=== PATIENT | female | born 1955 | race Caucasian/White ===

== ENCOUNTER → 2016-05-10 | Outpatient (CLI) | payer BC ==
[~2016-05-10] MED LIST: ATOR-14 PO; CALC-51; CLX20 PO; FERR-24 PO; LEVO125T7 PO; MORP-157 PO; OMEG10007 PO; OXYC7.5T78 PO; SUPER B COMPLEX PO
[2016-05-10 12:52] LABS: HEMATOCRIT 38.1 % (37-47); LYMPH % 33.6 %; MEAN CELL VOLUME 90.3 fL (80-100); MEAN CORPUSCULAR HEMOGLOBIN 29.4 pg (25-34); MEAN CORPUSCULAR HGB CONC 32.5 g/dl (32-36); MEAN PLATELET VOLUME 11.1 fL (7.4-10.4); MONO % 7.6 %; NEUT % 55.5 %; PLATELET COUNT 272 K/uL (130-400); RED BLOOD COUNT 4.22 M/uL (4.2-5.4); WHITE BLOOD COUNT 4.47 K/uL (4.8-10.8)
[2016-05-10 12:53] LABS: BASO % 0.4 %; BASO ABS # 0.02 K/uL (0-0.2); COMPLETE YES; EOS % 2.9 %
[2016-05-10 12:58] LABS: ALT/SGPT 31 U/L (12-78); AST/SGOT 19 U/L (15-37); BLOOD UREA NITROGEN 16 mg/dl (7-18); BUN/CREATININE RATIO 19.8 (10-20); CALCIUM 8.6 mg/dl (8.5-10.1); CARBON DIOXIDE 26 mmol/L (21-32); CHLORIDE 107 mmol/L (98-107); CREATININE 0.81 mg/dl (0.60-1.20); GLUCOSE 82 mg/dl (70-99); POTASSIUM 4.2 mmol/L (3.5-5.1); SODIUM 141 mmol/L (136-145)
[2016-05-10 13:09] LABS: ALKALINE PHOSPHATASE 89 U/L (45-117); CHOLESTEROL 150 mg/dl (0-200); CHOLESTEROL/HDL RATIO 2.2; FERRITIN 6.3 ng/ml (8.0-388.0); HDL CHOLESTEROL 69 mg/dl; LDL CHOLESTEROL CALCULATED 70 mg/dl; TRIGLYCERIDES 55 mg/dl (0-150); VERY LOW DENSITY LIPOPROT CALC 11 mg/dl
== END | disposition home or self-care (01) ==
LOC: C.LABBFT 07:53
PROVIDERS: ATTEND Nurse Practitioner
DX: E78.00 Pure hypercholesterolemia, unspecified (principal); D64.9 Anemia, unspecified; E03.9 Hypothyroidism, unspecified

== ENCOUNTER → 2016-10-31 | Outpatient (CLI) | payer OTHER ==
[2016-10-31 12:11] LABS: HEMATOCRIT 41.1 % (37-47); MEAN CELL VOLUME 92.8 fL (80-100); MEAN CORPUSCULAR HEMOGLOBIN 29.3 pg (25-34); MEAN CORPUSCULAR HGB CONC 31.6 g/dl (32-36); MEAN PLATELET VOLUME 10.5 fL (7.4-10.4); PLATELET COUNT 275 K/uL (130-400); RED BLOOD COUNT 4.43 M/uL (4.2-5.4); WHITE BLOOD COUNT 4.87 K/uL (4.8-10.8)
[2016-10-31 12:39] LABS: ALT/SGPT 26 U/L (12-78); AST/SGOT 20 U/L (15-37); BLOOD UREA NITROGEN 14 mg/dl (7-18); BUN/CREATININE RATIO 15.5 (10-20); CALCIUM 9.1 mg/dl (8.5-10.1); CARBON DIOXIDE 28 mmol/L (21-32); CHLORIDE 106 mmol/L (98-107); CHOLESTEROL 178 mg/dl (0-200); CREATININE 0.87 mg/dl (0.60-1.20); GLUCOSE 87 mg/dl (70-99); POTASSIUM 4.4 mmol/L (3.5-5.1); SODIUM 139 mmol/L (136-145); TRIGLYCERIDES 58 mg/dl (0-150); VERY LOW DENSITY LIPOPROT CALC 12 mg/dl
[2016-10-31 12:44] LABS: ALB/GLOB RATIO 1.1 (0.9-2); ALKALINE PHOSPHATASE 80 U/L (45-117); CHOLESTEROL/HDL RATIO 2.3; HDL CHOLESTEROL 77 mg/dl; LDL CHOLESTEROL CALCULATED 89 mg/dl
== END | disposition home or self-care (01) ==
LOC: C.LABBFT 08:19
PROVIDERS: ATTEND Nurse Practitioner
DX: E78.00 Pure hypercholesterolemia, unspecified (principal); D64.9 Anemia, unspecified

== ENCOUNTER → 2017-05-10 | Outpatient (CLI) | payer OTHER ==
[2017-05-10 12:53] LABS: ALBUMIN 3.7 gm/dl (3.4-5.0); ALT/SGPT 34 U/L (12-78); AST/SGOT 22 U/L (15-37); BLOOD UREA NITROGEN 13 mg/dl (7-18); CALCIUM 9.3 mg/dl (8.5-10.1); CARBON DIOXIDE 29 mmol/L (21-32); GLUCOSE 84 mg/dl (70-99); POTASSIUM 4.4 mmol/L (3.5-5.1); SODIUM 138 mmol/L (136-145)
[2017-05-10 13:04] LABS: ALKALINE PHOSPHATASE 81 U/L (45-117); CHOLESTEROL 177 mg/dl (0-200); LDL CHOLESTEROL CALCULATED 89 mg/dl; TOTAL PROTEIN 7.6 gm/dl (6.4-8.2)
== END | disposition home or self-care (01) ==
LOC: C.LABBFT 08:19
PROVIDERS: ATTEND Nurse Practitioner
DX: E78.00 Pure hypercholesterolemia, unspecified (principal); D64.9 Anemia, unspecified; E03.9 Hypothyroidism, unspecified

== ENCOUNTER → 2017-06-09 | Outpatient (CLI) | payer OTHER | END | disposition home or self-care (01) | LOC: C.LABPVFM 09:25 | PROVIDERS: ATTEND Nurse Practitioner | DX: E03.9 Hypothyroidism, unspecified (principal) ==

== ENCOUNTER → 2017-11-02 | Outpatient (CLI) | payer OTHER ==
[2017-11-02 16:37] LABS: BLOOD UREA NITROGEN 15 mg/dl (7-18); CALCIUM 8.6 mg/dl (8.5-10.1); CARBON DIOXIDE 25 mmol/L (21-32); CREATININE 0.87 mg/dl (0.60-1.20); GLUCOSE 77 mg/dl (70-99); POTASSIUM 4.1 mmol/L (3.5-5.1); SODIUM 134 mmol/L (136-145)
== END | disposition home or self-care (01) ==
LOC: C.LAB1850 15:12
PROVIDERS: ATTEND Nurse Practitioner
DX: E03.9 Hypothyroidism, unspecified (principal); E78.00 Pure hypercholesterolemia, unspecified

== ENCOUNTER 2023-03-07 05:29 | Observation (INO) ==
--- NOTE | 2023-02-09 09:57 | PAT Medication Instructions ---
Medication Instructions Date of Service February 09, 2023 Home Medications Medication Instructions Recorded diclofenac sodium 1 % topical gel 2 gm topical QID #100 grams 10/09/19 levothyroxine 175 mcg tablet 175 mcg PO QAM #90 tabs 05/18/22 atorvastatin 10 mg tablet 10 mg PO HS #90 tabs 07/15/22 citalopram 40 mg tablet 40 mg PO QAM #90 tabs 07/15/22 bupropion HCl 100 mg tablet,12 hr 100 mg PO QAM #90 ea 09/01/22 sustained-release omeprazole 40 mg capsule,delayed 40 mg PO QAM #90 caps 09/01/22 release alendronate 70 mg tablet 70 mg PO .COMPLEX #12 tabs 11/09/22 valsartan 80 mg tablet 80 mg PO QAM #90 tabs 01/20/23 cholecalciferol (vitamin D3) 50 mcg (2,000 unit) tablet 2,000 unit PO QAM cyanocobalamin (vitamin B-12) 1,000 mcg tablet 1,000 mcg PO HS omega-3 fatty acids 1,000 mg capsule (Fish Oil Concentrate) 1,000 mg PO QAM calcium citrate 500 mg PO BID ferrous sulfate 325 mg (65 mg iron) tablet 325 mg PO 3XWK diclofenac sodium 1 % topical gel 2 gm topical QID levothyroxine 175 mcg tablet 175 mcg PO QAM atorvastatin 10 mg tablet 10 mg PO HS citalopram 40 mg tablet 40 mg PO QAM bupropion HCl 100 mg tablet,12 hr sustained-release 100 mg PO QAM omeprazole 40 mg capsule,delayed release 40 mg PO QAM alendronate 70 mg tablet 70 mg PO .COMPLEX valsartan 80 mg tablet 80 mg PO QAM STOP taking 2 weeks before surgery (or as soon as possible if surgery is within 2 weeks) omega-3 fatty acids 1,000 mg capsule (Fish Oil Concentrate) 1,000 mg PO QAM STOP taking 24 hours before surgery diclofenac sodium 1 % topical gel 2 gm topical QID DO NOT take the morning of surgery cholecalciferol (vitamin D3) 50 mcg (2,000 unit) tablet 2,000 unit PO QAM calcium citrate 500 mg PO BID ferrous sulfate 325 mg (65 mg iron) tablet 325 mg PO 3XWK alendronate 70 mg tablet 70 mg PO .COMPLEX valsartan 80 mg tablet 80 mg PO QAM Take morning of surgery With a small sip of water, OTHERWISE NOTHING TO EAT OR DRINK AFTER MIDNIGHT: levothyroxine 175 mcg tablet 175 mcg PO QAM citalopram 40 mg tablet 40 mg PO QAM bupropion HCl 100 mg tablet,12 hr sustained-release 100 mg PO QAM omeprazole 40 mg capsule,delayed release 40 mg PO QAM Take evening before surgery cyanocobalamin (vitamin B-12) 1,000 mcg tablet 1,000 mcg PO HS calcium citrate 500 mg PO BID atorvastatin 10 mg tablet 10 mg PO HS Other Notes If you have any questions please call us at [phone] or [phone] or [phone] or [phone]
--- NOTE | 2023-02-15 13:13 | Anesthesiology Consultation ---
Date of Service February 15, 2023 Assessment & Plan (1) Encounter for pre-operative examination: Plan - PCP pre-operative evaluation 02/07/23 [place]: "...no history of cardiac disease and limited risk factors. Patient is medically stable to proceed with surgery. She will have preop clearance on 02/15/23. Final clearance after review of preop testing..." - Outpatient joint assessment: Patient is currently scheduled for inpatient pathway. If re-evaluated and patient/surgeon requests outpatient pathway, patient is acceptable candidate for outpatient joint program from anesthesia standpoint pending surgeon's office assessment of pt motivation/support/complet ion of same day joint program preop requirements. Chart Review Chart Review: Acceptable Risk for Surgery and Patient seen in Pre Admission Testing Teaching & Discussion Pre-Anesthesia Teaching/Discussion Notes: Instructed NPO after midnight before surgery, except medications with 15 cc of water. Medication instructions provided according to the PAT guidelines. History Surgery Operation Date: 03/07/23 07:00 Proposed Procedures p Left Total Knee Arthroplasty - Homer Cochran MD Height/Weight Height: 5 ft 4 in Weight: 103.5 kg Allergies Allergy/AdvReac Type Severity Reaction Status Date / Time No Known Allergies Allergy Verified 02/08/23 08:30 Medications Home Medications Medication Instructions Recorded Confirmed Last Taken cholecalciferol (vitamin D3) 50 2,000 unit PO QAM 11/29/18 02/08/23 04/13/21 mcg (2,000 unit) tablet cyanocobalamin (vitamin B-12) 1,000 mcg PO HS 11/29/18 02/08/23 04/13/21 1,000 mcg tablet omega-3 fatty acids 1,000 mg 1,000 mg PO QAM 11/29/18 02/08/23 04/13/21 capsule (Fish Oil Concentrate) calcium citrate 500 mg PO BID 01/16/19 02/08/23 04/13/21 ferrous sulfate 325 mg (65 mg 325 mg PO 3XWK 01/16/19 02/08/23 04/12/21 iron) tablet diclofenac sodium 1 % topical gel 2 gm topical QID #100 grams 10/09/19 02/08/23 Unknown levothyroxine 175 mcg tablet 175 mcg PO QAM #90 tabs 05/18/22 02/08/23 Unknown atorvastatin 10 mg tablet 10 mg PO HS #90 tabs 07/15/22 02/08/23 Unknown citalopram 40 mg tablet 40 mg PO QAM #90 tabs 07/15/22 02/08/23 Unknown bupropion HCl 100 mg tablet,12 hr 100 mg PO QAM #90 ea 09/01/22 02/08/23 Unknown sustained-release omeprazole 40 mg capsule,delayed 40 mg PO QAM #90 caps 09/01/22 02/08/23 Unknown release alendronate 70 mg tablet 70 mg PO .COMPLEX #12 tabs 11/09/22 02/08/23 Unknown valsartan 80 mg tablet 80 mg PO QAM #90 tabs 01/20/23 02/08/23 Unknown Past Medical History Medical History (Updated 02/15/23 @ 13:19 by Bina Faust PA-C) Anemia, mild Prediabetes no meds Osteoporosis Overactive bladder GERD (gastroesophageal reflux disease) controlled, stable per pt Anxiety and depression Pulmonary nodule Left [place] 04/2019 CT cervical spine Hypothyroidism History of Graves' disease History of radioactive iodine thyroid ablation Hyperlipidemia Hypertension controlled, stable per pt Lichen sclerosus Patient denies h/o stroke, seizures, heart attack, heart failure, blood clots/DVTs or blood transfusions. Exercise / Class Metabolic Activity II 4-5 Yardwork/Stairs/Walk up hill (denies chest discomfort or shortness of breath with 1 FOS, notes only has SOB if increased pain with knee-denies change or worsening) Past Family History Family History Father Coronary heart disease Heart disease Mother Diabetes Coronary heart disease Brother Family history of diabetes mellitus Other No family history of adverse response to anesthesia Denies family history of Ovarian cancer Prostate cancer Breast cancer Colorectal cancer Past Surgical History Surgical History History of hysterectomy History of open reduction and internal fixation (ORIF) procedure right wrist---hardware in place Status post debridement of bone spur right foot History of carpal tunnel surgery of right wrist History of total right knee replacement (TKR) History of [place]-en-Y gastric bypass 2004 History of tooth extraction History of wisdom tooth extraction H/O tubal ligation S/P panniculectomy H/O colonoscopy S/P appendectomy Past Anesthesia History No Hx of Anesthesia Complications and No Family Hx of Anesthesia Complications History of PONV History of PONV (denies needing scop patch) and Hx of Motion Sickness Social History Smoking Status: Former smoker Do You Dip or Chew Tobacco: No Smoking End Date: quit 1993 Hx Alcohol Use: Yes Alcohol type: wine and hard liquor alcohol intake frequency: a few times a month Hx Substance Use: No substance use type: does not use Review of Systems Patient denies chest pain, shortness of breath, dyspnea on exertion, snoring, witnessed apneas, fever, chills, cough, wheezing, or palpitations. Physical Exam Vital Signs Vitals BP 125/77 P 68 TEMP 97.7 SP02 97% on RA RESP 18 Physical Patient resting comfortably in chair in no acute distress, alert and oriented, responding appropriately throughout visit Full cervical extension range of motion without pain TMD 3.5 finger breadths Mallampati Score 2 Dentition: bridge front upper and several caps/crowns, denies chipped or loose teeth, or implants Lungs: normal respiratory effort. Good air movement, clear throughout to auscultation, no adventitious breath sounds Cardiac: regular rate and rhythm, no murmurs noted Carotid arteries: negative bruit bilat Lab Results Anesthesia Preop Results Results Anesthesia Widget: WBC 5.08 K/ul (4.8-10.8) 02/15/23 Hgb 12.2 g/dl (12.0-16.0) 02/15/23 Hct 37.0 % (37.0-47.0) 02/15/23 Plt 265 K/uL (130-400) 02/15/23 Na 134 mmol/L (136-145) L 02/15/23 K 4.9 mmol/L (3.5-5.1) 02/15/23 Cl 102 mmol/L (98-107) 02/15/23 CO2 26 mmol/L (21-32) 02/15/23 BUN 14 mg/dl (6-23) 02/15/23 Creat 0.78 mg/dl (0.6-1.2) 02/15/23 Glucose Level 91 mg/dl (70-99(Fasting)) 02/15/23 PT 10.3 Seconds (9.0-12.0) 02/15/23 PTT 25.7 Seconds (21.0-31.0) 02/15/23 INR 0.9 (0.9-1.1) 02/15/23 Blood Type A Positive 02/15/23 Antibody Screen NEGATIVE 02/15/23 Testing Electrocardiogram Date: 02/15/23 NSR, rate 67 bpm Chest X-Ray Date: 01/05/23 *1view* No evidence of acute fracture or other acute abnormalities in the visualized portions of the chest.
[2023-03-07] MEDS ORDERED: FAMOTIDINE 20 MG TAB PO SCH (06:00)
[2023-03-07] MEDS ORDERED: ROPIVACAINE 0.5% HCL/PF 150 MG, BUPIVACAINE 0.75% MPF 20 ML, EPINEPHrine 0.15 MG, Ketor... INFIL SCH (06:00)
[2023-03-07] MEDS ORDERED: traMADol HCL 50 MG TABLET PO SCH (06:00)
[2023-03-07] MEDS ORDERED: ceFAZolin 2000MG 2,000 MG/15 ML SYR IV SCH (06:00)
[2023-03-07] MEDS ORDERED: GABAPENTIN 300 MG CAP PO SCH (06:00)
[2023-03-07] MEDS ORDERED: LR 60ML/HR IV SCH (06:00)
[2023-03-07] MEDS ORDERED: METOCLOPRAMIDE HCL 10 MG TABLET PO SCH (06:00)
[2023-03-07] MEDS ORDERED: oxyCODONE HCL 10 MG TABCR (OxyCONTIN) PO SCH (06:00)
[2023-03-07] MEDS ORDERED: CeleBREX 200 MG CAP PO SCH (06:00)
[2023-03-07] MEDS ORDERED: dexAMETHasone 4 MG TAB PO SCH (06:00)
[2023-03-07] MEDS ORDERED: LR 500ML BOLUS, THEN 15ML/HR IV SCH (06:00)
[2023-03-07] MEDS ORDERED: TRANEXAMIC ACID 1,000 MG **IV Pre-op IV SCH (06:00)
[2023-03-07] MEDS ORDERED: ACETAMINOPHEN 500 MG TAB PO SCH (06:00)
[2023-03-07] MEDS ORDERED: ROPIVACAINE 0.5% 5 MG/ML 30 ML VIAL ONE (06:16)
[2023-03-07] MEDS ORDERED: BUPIVACAINE 0.5 % 5 MG/1 ML PF 10ML VIAL ONE (06:16)
[2023-03-07] MEDS ORDERED: ORTHO JOINT ANESTHETIC ONE (06:41)
--- NOTE | 2023-03-07 06:42 | History & Physical Bridge Note ---
Date of Service March 07, 2023 History & Physical Bridge Note I have examined the patient, reviewed the History & Physical and in the interval since the performance of the History & Physical I have noted the following changes of clinical significance: no changes noted
[2023-03-07] MEDS ORDERED: MIDAZOLAM HCL 1 MG/ML 2ML VIAL ONE (06:44)
[2023-03-07] MEDS ORDERED: fentaNYL citrate PF 100 MCG/2 ML VIAL ONE (06:44)
[2023-03-07] MEDS ORDERED: ONDANSETRON INJ 2 MG/ML 2 ML VIAL ONE (07:33)
[2023-03-07] MEDS ORDERED: PROPOFOL IV EMULSION 10 MG/ML 20 ML VIAL IV ONE ×2 (07:33→09:16)
[2023-03-07] MEDS ORDERED: ePHEDrine sulfate 50 MG/5 ML SYR ONE (07:39)
[2023-03-07] MEDS ORDERED: ATROPINE SULFATE 0.1 MG/ML 10ML SYR IV PRN (09:32)
[2023-03-07] MEDS ORDERED: ePHEDrine sulfate 50 MG/ML AMP IV PRN (09:32)
[2023-03-07] MEDS ORDERED: PROMETHAZINE HCL 12.5 MG in SODIUM CHLORIDE 0.9% 50 ML IV PRN (09:32)
[2023-03-07] MEDS ORDERED: fentaNYL citrate PF 100 MCG/2 ML VIAL IV PRN (09:32)
[2023-03-07] MEDS ORDERED: HYDROmorphone INJ 2 MG/ML SYR/VIAL IV PRN (09:32)
[2023-03-07] MEDS ORDERED: ONDANSETRON INJ 2 MG/ML 2 ML VIAL IV PRN ×2 (09:32→11:27)
--- NOTE | 2023-03-07 10:13 | Operative Report ---
Post Operative Report Pre & Post Diagnosis Operation Date: 03/07/23 07:00 Pre-Op Diagnosis: Left Knee Osteroarthritis Post-Op Diagnosis: Left Knee Osteroarthritis I identified the patient and participated in the time-out.: Yes Procedure Operation Date: 03/07/23 07:00 Actual Procedures p Left Total Knee Arthroplasty(Left) - Homer Cochran MD Surgeon Homer Cochran M.D. [employer] Chief Operating Officer Lauri Durant PA-C; no fellow or resident available Estimated Blood Loss 10 Findings Consistent with Post-Op Diagnosis Specimens Bone and soft tissue Anesthesia Type MAC Spinal Regional Description of Procedure Patient was taken to the operating room, placed under general anesthesia, time out performed, prepped and draped in routine sterile fashion. She was given 2gm IV Ancef for surgical prophylaxis. She was given 1 gm of TXA preoperatively. I was present during the entire case, please see Dr. Cochran's operative report for further detail. Patient was awakend and taken to the recovery room in stable condition. I attest to the content of the Intraoperative Record and any orders documented therein. Any exceptions are noted below.
--- NOTE | 2023-03-07 10:16 | Operative Report ---
Post Operative Report Pre & Post Diagnosis Operation Date: 03/07/23 07:00 Pre-Op Diagnosis: Left Knee Osteroarthritis Post-Op Diagnosis: Left Knee Osteroarthritis I identified the patient and participated in the time-out.: Yes Procedure Operation Date: 03/07/23 07:00 Actual Procedures p Left Total Knee Arthroplasty(Left) - Homer Cochran MD Surgeon Homer Cochran MD Sheet Metal Supervisor Viji Durant no resident or fellow available Estimated Blood Loss 10 Findings Consistent with Post-Op Diagnosis Specimens Resected bone and soft tissue left knee Anesthesia Type MAC Spinal Regional Complications none Disposition Accompanied Patient To Recovery: No Disposition: Recovery Room Indications Melany is 67 years old. Left knee arthritis refractory to nonsurgical treatment. She wishes to have her knee replaced. She is status post a successful right total knee arthroplasty in the past. She reports having a nickel allergy. The component that she has in place on the right knee is a standard cobalt chrome knee arthroplasty. Description of Procedure Informed consent. Patient identified. She identified the operative site as the left knee. I marked with my initials. Preop surgical timeout performed. Preop dose of IV antibiotics given. She was taken to the operating room positioned supine on the OR table. The anesthetic was administered. A padded post was used under the left calf. A bump was placed under the left hip and a tourniquet on the left thigh. The leg was prepped and draped in the usual sterile fashion. DVT prophylaxis intraoperatively with foot pumps and postoperatively mobility mechanical devices and Eliquis. The exam under anesthesia showed full extension and flexion to approximately 100 to 105 degrees. She had flexion to about 100 degrees of her right total knee. The knee was stable with slight varus alignment. TXA given Limb exsanguinated with the Esmarch. Tourniquet inflated to 275 mmHg. A midline longitudinal incision made followed by medial patellar parapatellar arthrotomy. The synovial reflection in the lateral gutter was released. Soft tissue on the anterior aspect of the distal femur was resected. An extensile medial release was performed. The retropatellar fat pad was resected. The patella showed large marginal osteophytes with grade 3 changes diffusely no grade 4 change. The patellar thickness was 24 mm. The knee was carefully flexed and the patella was able to be everted. Large osteophytes were noted especially along the medial femur and tibia with a deficient medial meniscus and grade 4 changes noted throughout the weightbearing area medially. The lateral compartment showed some bone spurs but intact meniscus and cartilage. No loose bodies were identified. The cruciate ligaments were resected knee was then subluxated and the meniscal remnants were removed. Marginal osteophytes were removed as encountered. Osteophytes under the collateral ligaments removed. A airplane patrol pilot hole was drilled just in front of and between the tibial spines and intramedullary alignment ariane was inserted. The patient has osteoporosis and was noted to have soft bone and widened bony trabeculae. The 3 degree posterior slope cutting block was applied aligned to the tibial tubercle and pinned into place. It was set to take 10 off of the lateral side which corresponded to 6 off the medial side. This cut was made and sized to a 3. Museum Registrar hole was drilled into the distal femur followed by the insertion of the distal femoral cutting guide which was set at 7 degree left knee valgus 12 mm th ick cut. This cut was made and the extension gap was a symmetric 10. Epicondylar axis marked out. The distal femoral sizing block was applied and sized to a 4 although 3 was a possibility. The guide was pinned into place. The collateral ligaments were protected and the cuts were made. The flexion gap was tight and I could not get the 10 block in. I then went ahead and half-size this by applying 3 block which resulted in a skim cut anteriorly without notching and took an additional 2 mm off posteriorly which resulted in a symmetric 10 mm flexion gap. The box cutting guide was applied and lateralized and the box cut was made followed by application of the trial femur. The tibia was prepared with the reamers x 2 and the keel punch for the mobile- bearing revision tibial tray based upon BMI and osteoporosis for additional fixation stability. The tray was lateralized and aligned with the tibial tubercle. A 10 spacer was trialed. Full extension flexion to just beyond 90 there was trace varus valgus laxity in mid position otherwise the knee was stable. The patella paddle was used to size for 35 patella. The guide was set to preserve 15 mm of bone and the cut was made and revised x 1. The paddle was medialized and distal lysed and aligned with the knee in slight flexion. The locals were drilled and patellar tracking was slightly off with no hands technique. Trial components were removed from the knee the canals were plugged and Ortho joint mix was injected into the back of the knee. The bony surfaces were meticulously prepared with pulsatile lavage and drying. 2 bags of Simplex P cement were mixed for a minute 15 seconds and after working state was achieved smears were applied to the posterior aspect of the condyle of the femur. The components were cemented and placed femur tibia and then patella. The tibial stem was cemented into place. The knee was held in full extension until the cemented hardened after 102 minutes of inflation and the tourniquet was let down. Meticulous hemostasis and copious pulsatile lavage. The remainder the Ortho joint mix was injected while the cement was hardening and the knee was irrigated. Once the cemented hardened the knee was inspected. Trialing was again performed and the size 10 gave the appropriate stability. The back the knee was inspected for cement and bleeding. Meticulous hemostasis was performed. The final polyethylene was inserted and the knee was reduced. The extensor mechanism was closed above the equator the patella with interrupted #2 FiberWire and below the equator with into running and interrupted #1 Vicryl. Patellar tracking was fine with no hands technique prior to extensor mechanism closure and after the tourniquet had been let down. [place] assisted flexion with the extensor mechanism closed was approximately 110 degrees. Composite patellar thickness was 24 mm. The skin was then closed in layers with 0 and 2-0 Vicryl and sonido on the skin. A soft sterile dressing was applied Xeroform 4 x 4's ABD soft wrap Kev wrap and a knee immobilizer. She was awakened from anesthesia without difficulty and taken to the recovery room in stable condition. The resected bone and soft tissues were sent for specimen. Counts were correct and blood loss is estimated to be 10 cc. At the conclusion of the operation there was no one available to speak to. She will be allowed to weight-bear as tolerated and rehab according to the standard total knee protocol. Eliquis was started morning after surgery. The components inserted with a [employer] PFC Sigma rotating platform knee. The revision keeled mobile-bearing tray was utilized without additional stem. Size 3. 35 mm 3 peg oval dome patella and a size 3 posterior stabilized left femur and a size 3 x 10 mm thick polyethylene insert. I attest to the content of the Intraoperative Record and any orders documented therein. Any exceptions are noted below.
--- NOTE | 2023-03-07 11:10 | Anesthesiology Progress Note ---
Date of Service March 07, 2023 Anesthesia Post Procedure Vital Signs Vital Signs: Temp Pulse Resp BP BP Pulse Ox O2 Del Method 03/07/23 11:00 75 15 136/73 97 Oxymask 03/07/23 10:50 72 15 134/76 98 Oxymask 03/07/23 10:40 72 14 120/78 100 Oxymask 03/07/23 10:30 73 16 126/87 98 Oxymask 03/07/23 10:20 72 18 140/76 98 Oxymask 03/07/23 10:12 36.0 C L 76 16 117/66 98 Oxymask 03/07/23 06:00 36.5 C 78 20 155/89 H 99 Room Air O2 Flow Rate 03/07/23 11:00 4 03/07/23 10:50 4 03/07/23 10:40 4 03/07/23 10:30 4 03/07/23 10:20 4 03/07/23 10:12 6 03/07/23 06:00 Pain Intensity Left Knee: Pain Intensity: 0 Transfer of Care Handoff Completed per policy Notes Mental Status: alert / awake / arousable and participated in evaluation Nausea / Vomiting: adequately controlled Pain: adequately controlled Airway Patency, RR, SpO2: stable & adequate BP & HR: stable & adequate Hydration State: stable & adequate Neuraxial Anesthesia: was administered and sensory block is resolving Anesthetic Complications: no major complications apparent and Pt Satisfied with anesthetic care
--- NOTE | 2023-03-07 11:11 | XRay Report ---
XR knee LT 1 or 2V routine HISTORY: 67 years-old Female Surgical Post Op left knee arthroplasty COMPARISON: Leg length study radiographs 02/15/2023 TECHNIQUE: 2 views of the left knee FINDINGS: Total joint arthroplasty with patellar resurfacing. Anterior midline skin sonido with expected posto perative soft tissue swelling and deep tissue air. No acute fracture, dislocation or unexpected opaqu e foreign body. IMPRESSION: Total joint arthroplasty with expected postoperative changes. ACT 112: Negative or not required by law. The above report was generated using voice recognition software. It may contain grammatical, syntax o r spelling errors. Electronically signed by: Bridger Ramirez M.D. 03/07/2023 11:10 AM
[2023-03-07] MEDS ORDERED: HYDROmorphone INJ 1 MG/ML SYRINGE IV PRN (11:27)
[2023-03-07] MEDS ORDERED: bisacodyL 10 MG SUPP PR PRN (11:27)
[2023-03-07] MEDS ORDERED: traMADol HCL 50 MG TABLET PO PRN (11:27)
[2023-03-07] MEDS ORDERED: HYDROmorphone INJ 0.5 MG/0.5 ML SYR IV PRN (11:27)
[2023-03-07] MEDS ORDERED: hydrALAZINE HCL 20 MG/ML VIAL IV PRN (11:27)
[2023-03-07] MEDS ORDERED: MAGNESIUM HYDROXIDE SUSP 30 ML UDC PO PRN (11:27)
[2023-03-07] MEDS ORDERED: NALOXONE HCL 0.4 MG/1 ML VIAL/CARP IV PRN (11:27)
[2023-03-07] MEDS: SODIUM CHLORIDE 0.9% 1,000 ML IV SCH ×2 (12:24→22:22)
[2023-03-07] MEDS: KETOROLAC TROMETHAMINE 15 MG/ML VIAL IV SCH ×3 (12:24→22:19)
[2023-03-07] MEDS: ACETAMINOPHEN 500 MG TAB PO SCH ×2 (14:33→22:20)
[2023-03-07] MEDS ORDERED: TRANEXAMIC ACID / 0.7% NACL 1,000 MG/100 ML BAG IV SCH (16:15)
--- NOTE | 2023-03-07 16:49 | Orthopedic Progress Note ---
Date of Service March 07, 2023 Assessment & Plan (1) Status post left knee replacement: Plan: Doing well. Surgical findings discussed. X-rays reviewed. Reviewed postoperative plan. She is stable. Routine course of postop IV antibiotics. PT OT. Jerad in the morning. Admission and Anticipated Discharge Date Admission Date: March 07, 2023 Subjective Resting comfortably. Was able to get up with assistance and go to the bathroom and sit in the chair. Pain well-controlled. Physical Exam Physical Exam: DP and PT pulses are 1+. Intact sensation throughout the foot.. Dressing clean dry and intact. Ankle and toe plantarflexion dorsiflexion inversion eversion big toe extension all 5 out of 5. Results & Data Vital Signs (Past 12 Hours) Vital Signs Temp Pulse Pulse Resp BP BP Pulse Ox 03/07/23 14:14 36.8 C 90 16 113/72 96 03/07/23 13:18 36.3 C L 91 H 14 119/66 96 03/07/23 12:22 36.4 C L 76 16 131/69 96 03/07/23 11:25 36.6 C 77 14 127/68 95 03/07/23 11:10 77 16 131/71 94 03/07/23 11:00 36.5 C 75 15 136/73 97 03/07/23 10:50 72 15 134/76 98 03/07/23 10:40 72 14 120/78 100 03/07/23 10:30 73 16 126/87 98 03/07/23 10:20 72 18 140/76 98 03/07/23 10:12 36.0 C L 76 16 117/66 98 03/07/23 06:00 36.5 C 78 20 155/89 H 99 O2 Del Method O2 Flow Rate 03/07/23 14:14 Room Air 03/07/23 13:18 Room Air 03/07/23 12:22 Room Air 03/07/23 11:25 Room Air 03/07/23 11:10 Room Air 03/07/23 11:00 Oxymask 4 03/07/23 10:50 Oxymask 4 03/07/23 10:40 Oxymask 4 03/07/23 10:30 Oxymask 4 03/07/23 10:20 Oxymask 4 03/07/23 10:12 Oxymask 6 03/07/23 06:00 Room Air
[2023-03-07] MEDS: ceFAZolin 2000MG 2,000 MG/15 ML SYR IV SCH ×2 (16:50→23:51)
[2023-03-07] MEDS: DOCUSATE SODIUM 100 MG CAP PO SCH (20:04)
[2023-03-07] MEDS ORDERED: SENNA 8.6 MG TAB PO SCH (21:00)
[2023-03-07] MEDS ORDERED: CYANOCOBALAMIN (B-12) 500 MCG TABLET PO SCH (21:00)
[2023-03-07] MEDS ORDERED: ATORVASTATIN 10 MG TAB PO SCH (21:00)
[2023-03-08] MEDS: ACETAMINOPHEN 500 MG TAB PO SCH (05:02)
[2023-03-08] MEDS: KETOROLAC TROMETHAMINE 15 MG/ML VIAL IV SCH (05:02)
[2023-03-08] MEDS ORDERED: LEVOTHYROXINE SODIUM 175 MCG TABLET PO SCH (06:30)
[2023-03-08 06:35] LABS: Hemoglobin 8.7 g/dl (12.0-16.0); Mean Corpuscular Hemoglobin 29.9 pg (25.0-34.0); Mean Corpuscular Hgb Conc 32.2 g/dL (32.0-36.0); Mean Corpuscular Volume 92.8 fL (80.0-100.0); Mean Platelet Volume 10.4 fL (9.4-12.4); Platelet Count 177 K/uL (130-400); RDW Coefficient of Variation 13.2 % (11.5-14.5); RDW Standard Deviation 45.3 fL (36.4-46.3); Red Blood Count 2.91 M/uL (4.20-5.40); White Blood Count 7.19 K/ul (4.8-10.8)
[2023-03-08 06:53] LABS: BUN Creatinine Ratio 16.4 (10-20); Calcium 7.9 mg/dl (8.6-10.3); Creatinine Clr Calc Pharmacy 85.8 ml/min; Est GFR (African American) 98.8 ml/min; Est GFR (Non-African American) 85.2 ml/min; Potassium 3.8 mmol/L (3.5-5.1)
[2023-03-08] MEDS: DOCUSATE SODIUM 100 MG CAP PO SCH (07:37)
[2023-03-08] MEDS: oxyCODONE HCL IR 5 MG TAB (IMMEDIATE RELEASE) PO PRN ×2 (07:43→11:48)
[2023-03-08] MEDS ORDERED: dexAMETHasone 4 MG TAB PO SCH (08:00)
[2023-03-08] MEDS ORDERED: VALSARTAN 80 MG TAB PO SCH (09:00)
[2023-03-08] MEDS ORDERED: CALCIUM CITRATE 950 MG TAB PO SCH (09:00)
[2023-03-08] MEDS ORDERED: buPROPion SR 100 MG TABCR PO SCH (09:00)
[2023-03-08] MEDS ORDERED: CHOLECALCIFEROL 1,000 UNITS 25 MCG TAB PO SCH (09:00)
[2023-03-08] MEDS ORDERED: APIXABAN 2.5 MG TAB PO SCH (09:00)
[2023-03-08] MEDS ORDERED: PANTOprazole 40 MG TAB PO SCH (09:00)
[2023-03-08] MEDS ORDERED: MULTIVITAMIN TAB PO SCH (09:00)
[2023-03-08] MEDS ORDERED: CITALOPRAM 40 MG TAB PO SCH (09:00)
[2023-03-08] MEDS ORDERED: FERROUS SULFATE 325 MG TAB PO SCH (09:00)
--- NOTE | 2023-03-08 10:49 | Orthopedic Progress Note ---
Date of Service March 08, 2023 Assessment & Plan (1) Status post left knee replacement: Plan: Postop day 1-status post left total knee arthroplasty by Dr. Cochran. Regular diet as ordered. Eliquis 2.5 mg p.o. twice daily for DVT prophylaxis to start today. RICHARD stockings and AV impulse boots while inpatient as well. Incentive spirometer every 2 hours while awake. PT and OT to start this morning. Prevena dressing applied to her left lower extremity. She may weight-bear as tolerated on her left lower extremity with the assistance of a walker. I discontinued her knee immobilizer today as she did have good quad control. H/H -dropped a little from preop H/H. but stable. No need for transfusion, this may be causing some light headedness with quick changes in position. Encourged fluid intake. Continue pain medications as ordered. Findings discussed with Dr. Cochran and patient seen and evaluated by him this morning. Plans for home with home health today if safe from PT and OT. Patient understands and agrees with the plan. Discharge instructions were reviewed and pain medication and Eliquis was sent to pharmacy. Admission and Anticipated Discharge Date Admission Date: March 07, 2023 Subjective Patient sitting in chair. Doing well. No complaints of significant pain not controlled with oral pain medication of her left knee. She has not had any postoperative nausea, vomiting. She has been tolerating a regular diet. Her Eliquis started this morning for DVT prophylaxis. She has been up with physical therapy and is awaiting occupational therapy this morning. She does feel well enough to go home. She did have some slight dizziness when standing up too quickly this morning. She did not pass out or lose consciousness. She also had a small episode with this and needed to sit after using the restroom for few extra minutes. This was reported by nursing. Review of Systems Review of Systems: As per HPI Physical Exam Musculoskeletal: Exam of her left lower extremity: Minimal edema to her left foot. Dorsalis pedis and posterior tibial pulses are 1+. She has full active range of motion of the ankle. She is able to independently straight leg raise with no extensor lag and with good control. She has no effusion to the left knee. Mild bloody drainage on the dressings but no active bleeding. Incision is clean, dry and intact. It was cleansed with sterile saline to remove some dried blood. A Prevena wound VAC dressing was applied. Calf is supple and nontender. Richard stocking was applied over the Prevena dressing. Results & Data Vital Signs (Past 12 Hours) Vital Signs Temp Pulse Pulse Resp BP Pulse Ox O2 Del Method 03/08/23 09:13 36.5 C 77 74 17 133/76 96 03/08/23 08:00 Room Air 03/08/23 07:07 36.5 C 74 17 133/76 96 Room Air 03/08/23 03:11 36.5 C 74 16 105/66 95 Room Air 03/07/23 23:33 36.7 C 76 18 121/69 94 Room Air Laboratory Results 03/08/23 Range/Units 05:48 WBC 7.19 (4.8-10.8) K/ul RBC 2.91 L (4.20-5.40) M/uL Hgb 8.7 L (12.0-16.0) g/dl Hct 27.0 L (37.0-47.0) % MCV 92.8 (80.0-100.0) fL MCH 29.9 (25.0-34.0) pg MCHC 32.2 (32.0-36.0) g/dL RDW Std Deviation 45.3 (36.4-46.3) fL RDW Coeff of Ashly 13.2 (11.5-14.5) % Plt Count 177 (130-400) K/uL MPV 10.4 (9.4-12.4) fL Sodium 136 (136-145) mmol/L Potassium 3.8 (3.5-5.1) mmol/L Chloride 105 (98-107) mmol/L Carbon Dioxide 25 (21-32) mmol/L Anion Gap 6 (3-11) BUN 12 (6-23) mg/dl Creatinine 0.73 (0.6-1.2) mg/dl Est Cr Clr Drug Dosing 85.8 ml/min Est GFR ( Amer) 98.8 ml/min Est GFR (Non-Af Amer) 85.2 ml/min BUN/Creatinine Ratio 16.4 (10-20) Glucose 114 H (70-99(Fasting)) mg/dl Calcium 7.9 L (8.6-10.3) mg/dl
--- NOTE | 2023-03-08 11:14 | Discharge Summary ---
Date of Service March 08, 2023 Discharge Data Procedures Performed Operation Date: 03/07/23 07:00 Actual Procedures p Left Total Knee Arthroplasty(Left) - Homer Cochran MD Hospital Course (1) Status post left knee replacement: Patient was kept in observation at [facility] after undergoing an elective left total knee arthroplasty with Dr. Cochran in March 07, 2023 . Her surgery was performed with IV sedation, spinal anesthesia and a peripheral nerve block. She tolerated the procedure well without any intraoperative complications. She was given IV Ancef which was continued for 24 hours after her surgery. Postoperative x-rays performed in the recovery room of her left knee showed a stable joint prosthesis. She was allowed out of bed, weight-bear as tolerated on left lower extremity with the assistance of a walker. Her home medications were continued. She was started on Eliquis 2.5 mg p.o. twice daily which was started on postoperative day 1 for DVT prophylaxis. She was also given thigh-high PHILIPPE stockings and AV impulse boots during her inpatient stay. She was given a regular diet during her inpatient stay. She did not develop any postoperative nausea or vomiting after her surgery. She did develop some mild lightheadedness with quick changes in position when going from a lying to sitting or sitting to standing position. This did not cause her to pass out or have any syncopal episodes. This resolved with rest and sitting. PT and Occupational Therapy were consulted for assessment of ambulation and ability to return home after her procedure. She was seen by them on postoperative day 1 and was deemed safe for discharge to her home. On postoperative day 1 her postoperative dressings were removed and a Prevena dressing was applied to the left knee. Her pain was well-controlled with oral tramadol and oxycodone. Her vital signs remained stable during her inpatient stay. She did have a small drop in her hemoglobin to 8.7 from 11 prior to surgery. No transfusions were required. She was encouraged to continue her home iron supplements and make sure that she drinks lots of fluids. Discharge instructions were reviewed. All questions were answered. She will follow-up as scheduled. She understands and agrees with the plan.
== END 2023-03-08 13:03 | disposition home health service (06) ==
LOC: ASU 05:29 → 3E 05:29